=== PATIENT | female | born 1970 | race Two or more races ===

== ENCOUNTER 2020-12-04 12:58 | Emergency (ER) | payer OTHER ==
[~2020-12-04] VITALS: Ht 160 cm; Wt 73.5 kg
[2020-12-04] MEDS ORDERED: PROSOL2000 ML (13:39)
[2020-12-04] MEDS ORDERED: SYNTHROID112 MCG PO (13:39)
[2020-12-04] MEDS ORDERED: PEPCID AC20 MG PO (20:08)
[2020-12-04] MEDS ORDERED: DICY20TA PO (20:08)
[2020-12-04] MEDS ORDERED: CARAFATE1 GM PO (20:08)
== END 2020-12-04 20:42 | disposition home or self-care (01) ==
LOC: ER 12:58
DX: K29.00 Acute gastritis without bleeding (principal)

== ENCOUNTER 2021-05-30 07:36 | Outpatient (CLI) | payer OTHER ==
[~2021-05-30 07:36] MED LIST: CARAFATE1 GM PO; DICY20TA PO; PEPCID AC20 MG PO; PROSOL2000 ML; SYNTHROID112 MCG PO
== END 2021-05-30 07:40 | disposition home or self-care (01) ==
LOC: LAB 07:36
PROVIDERS: ATTEND Obstetrics & Gynecology Obstetrics
DX: N80.3 Endometriosis of pelvic peritoneum (principal); I10 Essential (primary) hypertension; E03.9 Hypothyroidism, unspecified; E78.2 Mixed hyperlipidemia; N95.1 Menopausal and female climacteric states; N92.6 Irregular menstruation, unspecified; R97.1 Elevated cancer antigen 125 [CA 125]

== ENCOUNTER → 2021-06-10 | Outpatient (CLI) | payer OTHER | END | disposition home or self-care (01) | LOC: MAMO-SONO 14:41 | PROVIDERS: ATTEND Obstetrics & Gynecology Obstetrics | DX: E21.1 Secondary hyperparathyroidism, not elsewhere classified (principal); E03.8 Other specified hypothyroidism; E55.9 Vitamin D deficiency, unspecified; N64.4 Mastodynia ==

== ENCOUNTER 2021-06-13 08:54 | Outpatient (CLI) | payer OTHER | END 2021-06-13 08:58 | disposition home or self-care (01) | LOC: LAB 08:54 | PROVIDERS: ATTEND Internal Medicine | DX: E21.1 Secondary hyperparathyroidism, not elsewhere classified (principal); E03.8 Other specified hypothyroidism; E55.9 Vitamin D deficiency, unspecified ==

== ENCOUNTER 2021-12-12 10:04 | Outpatient (CLI) | payer OTHER | END 2021-12-12 10:05 | disposition home or self-care (01) | LOC: LAB 10:04 | PROVIDERS: ATTEND Obstetrics & Gynecology Obstetrics | DX: N80.30 Endometriosis of pelvic peritoneum, unspecified (principal); I10 Essential (primary) hypertension; E03.9 Hypothyroidism, unspecified ==

== ENCOUNTER 2022-03-08 14:52 | Emergency (ER) | payer OTHER ==
[~2022-03-08] VITALS: Ht 160 cm; Wt 74.8 kg
[2022-03-08] MEDS ORDERED: PEPCID AC20 MG PO (19:06)
[2022-03-08] MEDS ORDERED: ZOFRAN8 MG PO (19:06)
[2022-03-08] MEDS ORDERED: DOLOGEN CAPLET1 EACH PO (19:06)
== END 2022-03-08 19:29 | disposition home or self-care (01) ==
LOC: ER 14:52
DX: B34.9 Viral infection, unspecified (principal); R11.2 Nausea with vomiting, unspecified; Z20.822 Contact with and (suspected) exposure to COVID-19

== ENCOUNTER 2022-06-19 10:26 | Outpatient (CLI) | payer OTHER ==
[~2022-06-19 10:26] MED LIST changes: +DOLOGEN CAPLET1 EACH PO; +ZOFRAN8 MG PO
== END 2022-06-19 10:34 | disposition home or self-care (01) ==
LOC: LAB 10:26
DX: E03.8 Other specified hypothyroidism (principal); E66.09 Other obesity due to excess calories

== ENCOUNTER → 2022-12-28 | Emergency (ER) | payer OTHER ==
[~2022-12-28] VITALS: Ht 157.5 cm; Wt 73.5 kg
[~2022-12-28] MED LIST changes: +LOPRESSOR25 MG PO
[2022-12-28 19:06] LABS: HEMATOCRIT 35.5 % (36.0-45.00); HEMOGLOBIN 11.8 g/dL (12.0-15.00); MEAN CELL VOLUME 82.9 fL (80.00-100.00); MEAN CORPUSCULAR HEMOGLOBIN 27.5 pg (27.00-32.0); MEAN CORPUSCULAR HGB CONC 33.2 g/dl (32.0-36.0); PLATELET COUNT 245 K/uL (150-450); RED BLOOD COUNT 4.28 M/uL (4.00-6.00); RED CELL DISTRIBUTION WIDTH 14.6 % (11.5-14.5)
[2022-12-28 19:44] LABS: BILIRUBIN TOTAL 0.14 mg/dL (0.3-1.2); CALCIUM 8.5 mg/dL (8.5-10.1); CREATININE SERUM 0.86 mg/dL (0.55-1.02); GFR 69.84; GLOBULINA 4.4 G/DL (2.4-3.5); POTASSIUM 3.98 mEq/L (3.5-5.1); TOTAL PROTEIN 7.4 gm/dL (6.4-8.2)
== END | disposition home or self-care (01) ==
LOC: ER 14:09
PROVIDERS: General Practice
DX: A08.39 Other viral enteritis (principal); Z20.822 Contact with and (suspected) exposure to COVID-19

== ENCOUNTER 2023-03-31 18:00 | Emergency (ER) | payer OTHER ==
[~2023-03-31] VITALS: Ht 157.5 cm; Wt 77.1 kg
[2023-03-31] MEDS ORDERED: LEVOTHYROXINE25 MCG (18:13)
[2023-03-31 18:42] LABS: HEMATOCRIT 37.5 % (36.0-45.00); HEMOGLOBIN 12.3 g/dL (12.0-15.00); MEAN CELL VOLUME 81.7 fL (80.00-100.00); MEAN CORPUSCULAR HEMOGLOBIN 26.8 pg (27.00-32.0); MEAN CORPUSCULAR HGB CONC 32.8 g/dl (32.0-36.0); PLATELET COUNT 225 K/uL (150-450); RED BLOOD COUNT 4.59 M/uL (4.00-6.00); RED CELL DISTRIBUTION WIDTH 14.1 % (11.5-14.5)
[2023-03-31 19:16] LABS: BILIRUBIN TOTAL 0.48 mg/dL (0.3-1.2); CALCIUM 8.5 mg/dL (8.5-10.1); CREATININE SERUM 0.76 mg/dL (0.55-1.02); GFR 80.23; GLOBULINA 4.3 G/DL (2.4-3.5); POTASSIUM 3.83 mEq/L (3.5-5.1); TOTAL PROTEIN 7.3 gm/dL (6.4-8.2)
[2023-03-31] MEDS ORDERED: PEPCID AC20 MG PO (20:37)
[2023-03-31] MEDS ORDERED: ONDANSETRON ODT8 MG PO (20:37)
== END 2023-03-31 20:45 | disposition home or self-care (01) ==
LOC: ER 18:01
PROVIDERS: General Practice
DX: K52.9 Noninfective gastroenteritis and colitis, unspecified (principal); R10.9 Unspecified abdominal pain; Z20.822 Contact with and (suspected) exposure to COVID-19

== ENCOUNTER 2023-05-21 17:20 | Emergency (ER) | payer OTHER ==
[~2023-05-21] VITALS: Ht 170.2 cm; Wt 84.4 kg
[~2023-05-21 17:20] MED LIST changes: +LEVOTHYROXINE25 MCG; +ONDANSETRON ODT8 MG PO
[2023-05-21] MEDS ORDERED: LEVO-T125 MCG (17:56)
[2023-05-21] MEDS ORDERED: DEXAMETHASONE SODIUM PHOSPHATE 4 MG/ML VIAL IM ONE (20:45)
[2023-05-21] MEDS ORDERED: ACETAMINOPHEN 500 MG GEL..CAP PO ONE (20:45)
[2023-05-21 21:31] LABS: HEMATOCRIT 35.9 % (36.0-45.00); HEMOGLOBIN 11.8 g/dL (12.0-15.00); MEAN CELL VOLUME 82.5 fL (80.00-100.00); MEAN CORPUSCULAR HEMOGLOBIN 27.2 pg (27.00-32.0); MEAN CORPUSCULAR HGB CONC 32.9 g/dl (32.0-36.0); PLATELET COUNT 259 K/uL (150-450); RED BLOOD COUNT 4.35 M/uL (4.00-6.00); RED CELL DISTRIBUTION WIDTH 14.3 % (11.5-14.5)
== END 2023-05-21 22:58 | disposition home or self-care (01) ==
LOC: ER 17:21
PROVIDERS: General Practice
DX: B34.9 Viral infection, unspecified (principal); R53.81 Other malaise; Z20.822 Contact with and (suspected) exposure to COVID-19; I10 Essential (primary) hypertension

== ENCOUNTER 2024-02-10 07:52 | Outpatient (CLI) | payer OTHER ==
[~2024-02-10 07:52] MED LIST changes: +LEVO-T125 MCG
[2024-02-10 08:46] LABS: PH,URINE 6.5 (5.0-8.0); URINE APPEARANCE Clear; URINE BILIRRUBIN Negative (NEGATIVE); URINE BLOOD Negative; URINE COLOR Yellow; URINE GLUCOSE Negative (NEGATIVE); URINE KETONE Negative (NEGATIVE); URINE LEUKOCYTE Negative; URINE NITRATE Negative; URINE PROTEIN Trace (NEGATIVE)
[2024-02-10 08:50] LABS: URINE BACTERIA 221.7 uL (0.0-1933); URINE EPITHELIAL CELLS 29.6 uL (0.0-38.8); URINE RBC 14.6 uL (0.0-20.8); URINE WBC 5.1 uL (0.0-23.2)
[2024-02-10 08:51] LABS: HEMATOCRIT 38.4 % (36.0-45.00); HEMOGLOBIN 12.8 g/dL (12.0-15.00); MEAN CELL VOLUME 83.3 fL (80.00-100.00); MEAN CORPUSCULAR HEMOGLOBIN 27.9 pg (27.00-32.0); MEAN CORPUSCULAR HGB CONC 33.5 g/dl (32.0-36.0); PLATELET COUNT 231 K/uL (150-450); RED CELL DISTRIBUTION WIDTH 14.8 % (11.5-14.5)
[2024-02-10 10:06] LABS: ALBUMIN 3.5 gm/dL (3.4-5.0); BILIRUBIN TOTAL 0.41 mg/dL (0.3-1.2); CHOL HDL RATIO 2.5 (0-5.0); CREATININE SERUM 0.71 mg/dL (0.55-1.02); GFR 86.44; GLOBULINA 4.1 G/DL (2.4-3.5); POTASSIUM 4.28 mEq/L (3.5-5.1); TOTAL PROTEIN 7.6 gm/dL (6.4-8.2); TSH 2.03 uIU/mL (0.358-3.74)
[2024-02-10 10:54] LABS: CORTISOL 13.67 ug/dl; VITAMIN D3 25 HYDROXY 57.78 ng/ml (30-120)
[2024-02-14 08:06] LABS: hav igm Negative (Negative); hcv Non Reactive (Non Reactive); hep b c Negative (Negative); hep b s ag Negative (Negative)
[2024-02-14 10:10] LABS: CA 125 7.5 U/mL (0.0-38.1); FOLLICLE STIMULATING HORMONE 29.5 mIU/mL (.); LEUTEINIZING HORMONE 36.6 mIU/mL (.)
== END 2024-02-10 08:02 | disposition home or self-care (01) ==
LOC: LAB 07:52
DX: E11.9 Type 2 diabetes mellitus without complications (principal); L68.9 Hypertrichosis, unspecified; I10 Essential (primary) hypertension; E03.9 Hypothyroidism, unspecified; E78.2 Mixed hyperlipidemia; N95.1 Menopausal and female climacteric states; N92.6 Irregular menstruation, unspecified; E84.0 Cystic fibrosis with pulmonary manifestations; E29.1 Testicular hypofunction

== ENCOUNTER 2024-02-14 08:35 | Outpatient (CLI) | payer OTHER | END 2024-02-14 08:41 | disposition home or self-care (01) | LOC: MAMO-SONO 08:35 | PROVIDERS: ATTEND Obstetrics & Gynecology Obstetrics | DX: N64.4 Mastodynia (principal); Z12.31 Encounter for screening mammogram for malignant neoplasm of breast ==